=== PATIENT | female | born 1990 | race American Indian/Alaskan Native ===

== ENCOUNTER 2022-01-09 08:39 | Outpatient (CLI) | payer OTHER ==
--- NOTE | 2022-01-09 10:48 | Ultrasound Report ---
ULTRASOUND BREAST BILATERAL COMPLETE, 01/09/2022 CLINICAL INFORMATION / INDICATION: BILATERAL BREAST LUMPS. Dense breast tissue. TECHNIQUE: Complete sonographic evaluation of all 4 quadrants and retroareolar region was performed. COMPARISON: None. FINDINGS: RIGHT: There is dense breast tissue. There is a 7.6 mm simple cyst at the 9:00 position 7 cm from the nipple. There is a 6.7 mm cluster of microcysts at the 9:00 position 6 cm from the nipple. There is a 4.4 mm cluster of microcysts at the 12:00 position 4 cm from the nipple. There is no evidence of a solid mass, posterior shadowing or distortion. LEFT: There is dense breast tissue. There is a 4.2 mm minimally complicated cyst at the 3:00 position 3 cm from the nipple. There is a 3.9 mm minimally complicated cyst at the 9:00 position 1 cm from th e nipple. There is no evidence of a solid mass, posterior shadowing or distortion. IMPRESSION: Benign-appearing cystic lesions scattered throughout both breasts. No suspicious sonograp hic abnormality. Follow up recommendation: Unless otherwise clinically indicated, recommend patient return to routine yearly screening mammography at age 42. BI-RADS Category 2: BENIGN. A normal or "negative" report should not preclude biopsy or follow-up of a clinically suspicious find ing. Signer Name: Jeff Pacheco MD Signed: 01/09/2022 10:44 AM Workstation Name: [id number]
== END 2022-01-09 08:40 | disposition home or self-care (01) ==
LOC: MAMMO 08:39
PROVIDERS: ATTEND Internal Medicine
DX: N60.02 Solitary cyst of left breast (principal); N60.01 Solitary cyst of right breast